=== PATIENT | female | born 1990 | race Caucasian/White ===

== ENCOUNTER → 2024-04-26 | Emergency (ER) | payer OTHER ==
[~2024-04-26] VITALS: Ht 157.5 cm; Wt 54.4 kg
[~2024-04-26] MED LIST: 0.9 % SODIUM CHLORIDE 1,000 ML IV STA; FAMOTIDINE/PF 20 MG in 0.9 % SODIUM CHLORIDE 8 ML IV PUSH STA; FAMOTIDINE/PF 20 MG/2 ML VIAL ONE; ONDANSETRON HCL 2 MG/ML VIAL IV STA; ONDANSETRON HCL 2 MG/ML VIAL ONE
== END | disposition left against medical advice (07) ==
LOC: ER 16:45
DX: K29.70 Gastritis, unspecified, without bleeding (principal); Z88.8 Allergy status to other drugs, medicaments and biological substances